=== PATIENT | female | born 1995 | race Hispanic/Latino ===

== ENCOUNTER 2019-03-08 08:57 | Emergency (ER) | payer SELFPAY ==
[~2019-03-08] VITALS: Ht 157.5 cm; Wt 74.8 kg
[2019-03-08] MEDS ORDERED: KETOROLAC TROMETHAMINE 30 MG/ML VIAL IV STA (09:05)
[2019-03-08] MEDS ORDERED: KETOROLAC TROMETHAMINE 30 MG/ML VIAL IM STA (09:09)
--- NOTE | 2019-03-08 09:10 | NUR ---
PT GIVEN CUP FOR UA SPECIMEN, INFORMED ON INTENT TO OBTAIN CLEAN CATCH SPECIMEN, VERBALIZED UNDERSTANDING.
[2019-03-08] MEDS ORDERED: PROCHLORPERAZINE MALEATE TAB 10 MG TAB PO ONE (09:15)
[2019-03-08] MEDS ORDERED: DEXAMETHASONE SOD PHOS 10 MG/1 ML VIAL IV ONE (09:15)
[2019-03-08] MEDS ORDERED: DIAZEPAM INJ 5 MG/ML 2 ML IV ONE (09:15)
[2019-03-08] MEDS ORDERED: DEXAMETHASONE SOD PHOS 10 MG/1 ML VIAL IM ONE (09:15)
[2019-03-08] MEDS ORDERED: KETOROLAC TROMETHAMINE 30 MG/ML VIAL ONE (09:24)
[2019-03-08] MEDS ORDERED: DEXAMETHASONE SOD PHOS 10 MG/1 ML VIAL ONE (09:24)
--- NOTE | 2019-03-08 09:30 | NUR ---
FM NOW HERE, OK TO CHG TO PO VALIUM PER MD. ORDER PLACED.
--- NOTE | 2019-03-08 09:59 | NUR ---
NO MEDICATION REACTION. OK TO DC PER MD
[2019-03-09] MEDS ORDERED: DIAZEPAM 5 MG TAB PO SCH (09:00)
== END 2019-03-08 09:59 | disposition home or self-care (01) ==
LOC: ER 08:57
DX: G44.211 Episodic tension-type headache, intractable (principal)
CPT/HCPCS: 81025; 96372; 99283; J1100; J1885